=== PATIENT | female | born 1980 | race African-American/Black ===

== ENCOUNTER 2020-03-23 22:19 | Emergency (ER) | payer BC, MEDICAID ==
--- NOTE | 2020-03-23 23:18 | ER Document Report ---
HPI - HPI Time Seen by Provider: 03/23/20 22:44 Pain Level: Denies Context: Patient is a 39-year-old female that comes emergency department for chief complaint of 2 to 3 days of sick symptoms including sore throat, cough, congestion. Patient states her worst symptom is her sore throat. She denies headache, chest pain, abdominal pain, vomiting, fever, or any other complaints. Patient has 2 sick children with the same symptoms. Patient denies smoking, she denies any daily medications, she denies any diagnosed past medical history, she denies . - EENT EENT: REPORTS: Sore Throat - RESPIRATORY Respiratory: REPORTS: Coughing Past Medical History - General Information source: Patient - Social History Smoking Status: Never Smoker Frequency of alcohol use: Social Drug Abuse: None Lives with: Family Family History: Reviewed & Not Pertinent Patient has homicidal ideation: No - Medical History Medical History: Negative Surgical Hx: Negative - Immunizations Immunizations up to date: Yes Hx Diphtheria, Pertussis, Tetanus Vaccination: Yes Vertical Provider Document - CONSTITUTIONAL General Appearance: WD/WN, No Apparent Distress - HEENT HEENT: Atraumatic, Normocephalic. negative: Normal ENT Exam - There is erythema the posterior pharynx but tonsils are unremarkable, no exits, uvula normal, patent airway. Unremarkable oropharyngeal exam otherwise. Unremarkable ears, eyes. Mild nasal congestion. - NECK Neck: Normal Inspection - RESPIRATORY Respiratory: Breath Sounds Normal, No Respiratory Distress - CARDIOVASCULAR Cardiovascular: Regular Rate, Regular Rhythm - GI/ABDOMEN Gastrointestinal: Abdomen Soft, Abdomen Non-Tender. negative: Abdomen Tender - BACK Back: Normal Inspection - MUSCULOSKELETAL/EXTREMETIES Musculoskeletal/Extremeties: MAEW, FROM, Non-Tender - NEURO Level of Consciousness: Awake, Alert, Appropriate Motor/Sensory: No Motor Deficit, No Sensory Deficit - DERM Integumentary: Warm, Dry, No Rash Course - Re-evaluation Re-evalutation: Patient with mild nasal congestion, erythema the posterior pharynx, unremarkable exam otherwise. Patient is talkative and well-appearing. Vital signs unremarkable. Patient with her 2 children who have the same symptoms. Patient is requesting COVID-19 testing. Strep test was performed and negative. COVID- 19 was performed on request, discussed quarantine, follow-up, return precautions. Patient states understanding and agreement. - Vital Signs Vital signs: Temp Pulse Resp BP Pulse Ox 98.5 F 83 16 122/77 100 03/23/20 22:25 03/23/20 22:25 03/23/20 22:25 03/23/20 22:25 03/23/20 22:25 Discharge - Discharge Clinical Impression: Sinus congestion, Cough, Person under investigation for COVID-19 Pharyngitis Qualifiers: Pharyngitis/tonsillitis etiology: unspecified etiology Qualified Code(s): J02.9 - Acute pharyngitis, unspecified Condition: Stable Disposition: HOME, SELF-CARE Additional Instructions: Your strep test is negative. Your evaluation is consistent with a viral illness, you have been tested for COVID-19, please quarantine awaiting these results. You will be contacted with additional instructions, see additional information below. You can take Tylenol and ibuprofen for pain if needed, [id number] medications such as Flonase, cetirizine, Benadryl, etc. can help. Follow-up with primary care. Return for any concerning symptoms including difficulty breathing, spiking fevers, repeated vomiting, or any other concerning symptoms. As a person under investigation for COVID-19, the [place] Department of Health and Human Services (division on public health) advises you to adhere to the following guidance until your test results are reported to you. If your test result is positive, you will receive additional information from your provider and your local health department at that time. Remain at home until you are cleared by the health provider or public health authorities. Keep a log of visitors to your home, notify any visitors to your home of your isolation status. If you plan to move to a new address or leave the county, notify the local health department in your County. Call your Doctor or seek care if you have an urgent medical need. Before seeking medical care, call him to get instructions from the provider before arriving at the medical office, clinic, or hospital. Notify them that you are being tested for the virus (COVID-19) so that arrangements can be made, as necessary, to prevent transmission to others in the healthcare setting. Next, notify the local health department in your county. If a medical emergency arises and you need to call 911, inform the first res ponders that you are being tested for the virus that causes COVID-19. Next, notify the local health department in your county. Forms: Parent Work Note
[2020-03-24 01:01] VITALS: BP 127/84
== END 2020-03-24 01:01 | disposition home or self-care (01) ==
LOC: ER 22:19
DX: J02.9 Acute pharyngitis, unspecified (principal); R05 Cough; R09.81 Nasal congestion; Z20.828 Contact with and (suspected) exposure to other viral communicable diseases
CPT/HCPCS: 99283; 87070; 87880; 87077; U0003; C9803; 87635